=== PATIENT | male | born 2000 ===

== ENCOUNTER 2021-02-15 18:38 | Emergency (ER) | payer OTHER ==
[~2021-02-15] VITALS: Ht 172.7 cm; Wt 145.4 kg
[2021-02-15] MEDS ORDERED: ONDANSETRON HCL 4 MG TABLET PO ONE (19:30)
[2021-02-15 19:41] LABS: GLUCOSE,POINT OF CARE 137 MG/DL (70-110)
[2021-02-15 21:15] VITALS: BP 125/69
== END 2021-02-15 21:26 | disposition home or self-care (01) ==
LOC: EMS 18:38
DX: F12.129 Cannabis abuse with intoxication, unspecified (principal)
CPT/HCPCS: 82962; 99283; Q0162